=== PATIENT | female | born 1955 | race Caucasian/White ===

== ENCOUNTER 2021-05-05 05:08 | Day surgery (SDC) | payer OTHER ==
[2021-05-04 13:33] VITALS: BMI 34.2
[2021-05-05 14:12] VITALS: TEMP 98.7
[2021-05-05 15:01] VITALS: BP 117/53; PULSE 83
== END 2021-05-05 14:58 | disposition home or self-care (01) ==
LOC: JASU-ENDO 05:08
PROVIDERS: ATTEND Internal Medicine Gastroenterology
PROC: 0DJD8ZZ Inspection of Lower Intestinal Tract, Via Natural or Artificial Opening Endoscopic (ICD-10-PCS; principal; 2021-05-05 13:00)
DX: Z12.11 Encounter for screening for malignant neoplasm of colon (principal); Z86.010 Personal history of colon polyps